=== PATIENT | female | born 2000 | race Caucasian/White ===

== ENCOUNTER 2019-11-14 07:25 | Day surgery (SDC) | payer BC ==
[2019-11-10 13:48] LABS: Absolute Lymphocytes (CBC) 2.1 K/uL (0.7-4.9); Basophils % 0.8 % (0-1.3); Hematocrit 40.2 % (36.0-45.0); Lymphocytes % 28.7 % (15.3-44.8); MPV 9.1 fL (7.6-11.3); RBC Red Blood Cell Count 4.62 M/uL (3.86-4.86)
[2019-11-10 13:59] LABS: ALT/SGPT 60 U/L (12-78); AST/SGOT 39 U/L (15-37); Albumin 4.1 g/dL (3.4-5.0); Alkaline Phosphatase 79 U/L (45-117); BUN Blood Urea Nitrogen 11 mg/dL (7-18); Bicarbonate 23 mmol/L (21-32); Bilirubin Direct < 0.1 mg/dL (0-0.2); Bilirubin Total 0.4 mg/dL (0.2-1.0); Glucose Level 79 mg/dL (74-106); Protein, Total 7.8 g/dL (6.4-8.2); Sodium Level 139 mmol/L (136-145)
[2019-11-14] MEDS ORDERED: Ringers Lactate 1,000 ML IV ONE (07:51)
[2019-11-14] MEDS ORDERED: CEFOXITIN/SWI 1gm 1 GM/10 ML SYR ONE (08:09)
[2019-11-14 08:12] LABS: Specific Gravity 1.025 (1.005-1.030)
[2019-11-14] MEDS ORDERED: propofoL 200 MG/20 ML VIAL IV ONE (08:12)
[2019-11-14] MEDS ORDERED: FENTANYL CITR 100 MCG/2 ML ONE (08:12)
--- OUTSIDE RECORDS SUMMARY | 2019-11-14 08:12 | XMS REPORT | Continuity of Care Document ---
:2000 Author Organization [facility] t Address [address] [place] [address] Care Team Providers Name Role Phone Homero STAUFFER Attending Clinician Doctor Unassigned, Name Attending Clinician Unavailable Problems This patient has no known problems. Allergies, Adverse Reactions, Alerts This patient has no known allergies or adverse reactions. Medications This patient has no known medications. Procedures This patient has no known procedures. Encounters Start End Encounter Admission Attending Care Care Encounter Source Date/Time Date/Time Type Type Clinicians Facility Department ID 2018-12-25 2018-12-25 Urgent PRANAV Valentin [id number] 10:37:33 10:52:33 Care [facility] [id number] Surgical [id number] Specialti [id number] [address] [place] 2018-12-25 2018-12-25 Orders Doctor JORGE [id number] 00:00:00 00:00:00 Only UnassignedCONCETTA [id number] [place] [id number] Results This patient has no known results.
[2019-11-14] MEDS ORDERED: GLYCOPYRROLATE 0.2 MG/ML SYR ONE ×2 (08:13→09:47)
[2019-11-14] MEDS ORDERED: LIDOCAINE 2% MPF 5 ML VIAL ONE (08:13)
[2019-11-14] MEDS ORDERED: dexAMETHasone 10 MG/ML VIAL ONE (08:13)
[2019-11-14] MEDS ORDERED: ONDANSETRON 4 MG/2 ML VIAL ONE ×2 (08:13→10:22)
[2019-11-14] MEDS ORDERED: MIDAZOLAM HCL 2 MG/2 ML INJ ONE (08:13)
[2019-11-14] MEDS ORDERED: ROCURONIUM 50 MG/5 ML VIAL IV ONE (08:13)
--- NOTE | 2019-11-14 08:32 | P.HP ---
Date of Service: 11/14/19 PC: This 27-year-old female presents for elective laparoscopic cholecystectomy with intraoperative cholangiogram. HPC: Patient has been having right upper quadrant abdominal pain, radiating into her back. Her last visit was last week in necessitated a visit to the emergency room. She was found have coli cystitis with cholelithiasis. PMH: Negative PSHx: Previous appendectomy SOC: No known allergies SYS REVIEW: No cough, wheeze, shortness of breath. No chest pain or palpitations. Denies any urinary complaints O/E awake alert vital signs are stable HEENT: Not jaundiced Chest: Air entry is equal bilaterally ABD: Mild right upper quadrant tenderness LOCO: Intact DATA: Has documented gallstones IMPRESSION: Cholecystitis with cholelithiasis, biliary colic PLAN: I will take to the operating room for laparoscopic possible open cholecystectomy with with cholangiogram. The risks of this procedure have been discussed. The possibility of bleeding, infection, injury to bile ducts blood vessels intestines has been described. The possible need for an open and/or further surgeries and procedures was discussed. She understands and wants us to proceed.
[2019-11-14] MEDS ORDERED: KETOROLAC 30 MG/ML INJ ONE (09:47)
[2019-11-14] MEDS ORDERED: NEOSTIGMINE 1 MG/ML -5 ML ONE (09:48)
[2019-11-14] MEDS: HYDROMORPHONE HCL 1 MG/ML INJ ONE ×4 (10:15→10:30)
--- NOTE | 2019-11-14 10:22 | P.OP ---
Preoperative diagnosis: Cholecystitis with cholelithiasis Postoperative diagnosis: The same Primary procedure: Laparoscopic cholecystectomy Secondary procedure: Cholangiogram Anesthesia: General Estimated blood loss: Less than 10 cc Specimen: 1 specimen and contents Operative Technique: The patient brought the operating room placed supine on the table. After the induction of adequate general endotracheal anesthesia, the area of the abdomen was prepped with a DuraPrep solution, and she was draped in usual aseptic manner. A subumbilical incision was made. This brought down through the skin and subcutaneous tissue. The Visiport was now used to enter the peritoneal cavity and created pneumoperitoneum to approximately 12 mm of mercury. Under direct vision a 5 mm trocar was placed in the upper midline, and 2 other 5 mm trocars on the right lateral side of the abdominal wall. We were able to visualize right upper quadrant. We could see a fatty liver occupied the right upper quadrant. After elevating the inferior edge we found the gallbladder. It was noted be distended and shows sign of chronic cholecystitis. There were serosal adhesions to its surface. These were taken down using blunt sharp dissection. Applying the lateral traction we were on Georgiana's pouch were finally able to obtain the critical view. The cystic duct and artery having been identified, the cystic artery was clipped and divided 1st. Attention was now turned towards the cystic duct placed in the gallbladder and the cystic duct. An opening was made into the cystic duct through which we obtained an intraoperative cholangiogram. We could see good flow of contrast down distally showing no evidence of any obstruction to the common bile duct. Despite pressure injection it was difficult to fill the upper radicals. At this point the catheter was removed, and clips were placed on the distal portion of the cystic duct. The cystic duct was now fully transected. At this point we were able to rearrange the position of the grasper so as to provide counter traction as we dissected the gallbladder away from the liver bed. Once it was freed, it was placed into an Endo-Catch, brought out through the umbilical trocar site. Attention was turned back up towards right upper quadrant. Elevating the liver we opened inspect the liver bed. Adequate hemostasis having been achieved, the area was gently irrigated with a saline solution. The effluent was aspirated from the peritoneal cavity. Attention was now turned towards the emboli kiss. Using the Endo Close an absorbable suture we we approximated the 10 mm trocar site. At this point the pneumoperitoneum was collapsed, the trocars removed, the sutures tied. [place] were applied to the skin. At the end of procedure she was stable when sent to the recovery room. Needle sponge instrument count were correct. No drains were placed. Complications: None Transferred to: Recovery Room Condition: Good
[2019-11-14] MEDS ORDERED: HYDROMORPHONE HCL 1 MG/ML INJ ONE (11:46)
[2019-11-14] MEDS ORDERED: HYDROCODONE/APAP 7.5/325 MG TAB ONE (12:25)
[2019-11-14 13:02] VITALS: TEMP 98; O2SAT 94
[2019-11-14 14:14] VITALS: BP 106/70
== END 2019-11-14 12:05 | disposition home or self-care (01) ==
LOC: OR 07:25
PROVIDERS: ATTEND Surgery
PROC: BF03YZZ Plain Radiography of Gallbladder and Bile Ducts using Other Contrast (ICD-10-PCS; 2019-11-14)
PROC: 0FT44ZZ Resection of Gallbladder, Percutaneous Endoscopic Approach (ICD-10-PCS; principal; 2019-11-14 08:30)
DX: K80.10 Calculus of gallbladder with chronic cholecystitis without obstruction (principal); G47.33 Obstructive sleep apnea (adult) (pediatric); E66.01 Morbid (severe) obesity due to excess calories; Z68.39 Body mass index [BMI] 39.0-39.9, adult; F41.9 Anxiety disorder, unspecified; F31.9 Bipolar disorder, unspecified; Z11.59 Encounter for screening for other viral diseases
CPT/HCPCS: 85025; 80048; 36415; 81025; 80076; 88304; 74300; 47563; U0002; J2704; J2250; J3010; J1100; J1170 ×3; J2710; J7120; J2405 ×2